=== PATIENT | male | born 1960 | race Caucasian/White ===

== ENCOUNTER 2017-08-25 08:48 | Day surgery (SDC) | payer BC ==
[2017-08-25] MEDS ORDERED: NS 1,000 ML IV ONE (08:50)
[2017-08-25] MEDS ORDERED: diphenhydrAMINE 25 MG CAP PO ONE ×2 (08:50→09:12)
[2017-08-25] MEDS ORDERED: FAMOTIDINE 20 MG TAB PO ONE (08:50)
[2017-08-25] MEDS ORDERED: ASPIRIN EC 325 MG TAB PO ONE ×2 (08:50→09:13)
[2017-08-25] MEDS ORDERED: DIAZEPAM 5 MG TAB PO ONE ×2 (08:50→10:15)
--- NOTE | 2017-08-25 09:06 | CPEKG ---
Heart Rate: 61 RR Interval: 984 P-R Interval: 180 QRSD Interval: 94 QT Interval: 412 QTC Interval: 415 P [place]: 7 QRS [place]: 42 T Wave [place]: -43 EKG Severity - ABNORMAL ECG - EKG Impression: SINUS RHYTHM EKG Impression: ABNORMAL T, CONSIDER ISCHEMIA, INFERIOR LEADS Electronically Signed By: Osmel Blue 26-Aug-2017 16:37:48
[2017-08-25] MEDS ORDERED: FAMOTIDINE 20 MG TAB ONE (09:12)
[2017-08-25] MEDS ORDERED: DIAZEPAM 5 MG TAB ONE (09:13)
[2017-08-25 09:20] LABS: PLATELET COUNT 235 10^3/uL (150-400)
[2017-08-25 09:30] LABS: INR 0.99 (0.83-1.16); PROTIME(PATIENT) 13.3 SEC (12.0-15.0)
[2017-08-25] MEDS ORDERED: MIDAZOLAM 2 MG/2 ML VIAL ONE (12:41)
[2017-08-25] MEDS ORDERED: VERAPAMIL 5 MG/2 ML VIAL ONE (12:41)
[2017-08-25] MEDS ORDERED: fentaNYL 100 MCG/2 ML INJ ONE (12:41)
[2017-08-25] MEDS ORDERED: HEPARIN 10,000 UNIT/10 ML MDV (1,000 UNIT/ML) ONE (12:41)
[2017-08-25] MEDS ORDERED: LIDOCAINE 1% 300 MG/30 ML SDV ONE (12:41)
[2017-08-25] MEDS ORDERED: IOPAMIDOL (ISOVUE-370) 150 ML BTL IV ONE (12:42)
--- NOTE | 2017-08-25 12:45 | PDHPUP ---
History & Physical Update H&P update statement: This history and physical update is based on an assessment of the patient which was completed after admission or registration (within 24 hours), but prior to the surgery/procedure. H&P update: H&P reviewed & patient examined, no change in patient's condition since H&P completed
--- NOTE | 2017-08-25 12:45 | PDPROPOC ---
Sedation Plan of Care Sedation Plan of Care: vital signs stable, mental status noted, patient educated of risks, benefits, alternatives, patient can tolerate sedation ASA Classification: ASA 3 Planned drugs: fentanyl, midazolam Mallampati Score: Class 3 Mallampati Reference Image: Patient passed 3-3-2 rule?: Yes
--- NOTE | 2017-08-25 13:28 | PDDXCAT ---
Diagnostic Cath Note - . Date: 08/25/17 [employer] Supervisor: Jesi Indication: CCC Class III and IV angina on medical treatment - Procedure Access: left wrist - Materials Left Heart Cath size: 5F Left Heart Cath materials: standard multipack (JL4, JR4, pigtail) - Findings-Left Heart Catheterization LM: The LM is 5 mm in size. It bifurcates into an LAD and circumflex system. There is a 10% eccentric ostial lesion at its takeoff from the left main coronary cusp. LAD: The LAD is 3.25mm in size. It has been previously stented. The stented segment is widely patent with 0% instent restenosis. The distal portion has LAYLA III flow to the level of the apex. No flow limiting obstruction is identified. LCX: The circumflex is 3.5mm in size with a 2mm high OM branch that serves as a functional ramus vessel. No flow limiting obstruction is identified. After the AV grove branch there is 10-20% stenosis of the circ OM. RCA: The RCA is 3mm in size. It is free of flow limiting disease. EDP: 20mmHg LVEF: The EF is normal at 65% Wall motion: On the LV gram there is normal LV systolic function. The EF is 65% . There are no resting segmental wall motion abnormalities. The visualized portion of the thoracic aortic valve reveals three sinuses of valsalva most consistent with a trileaflet valve. There is no gradient on pullback across the aortic valve. There is no evidence of eric dissection or aneurysm formation. Complications: NONE. Estimated blood loss: <50ml Closure method: TR Band Assessment: The patient has quechan vessel coronary disease with no evidence of flow limiting obstruction, dissection, or thrombus. A reason for the patient's chest pain and shortness of breath with exertion is not identified on the basis of this study. Plan: The patient has non-flow limiting coronary disease that should be treated medically to achieve a non-HDL cholesterol of less than 100 mg/dL. I would like him to continue with his current cholesterol lowering regimen of Atorvastatin 20mg daily. In addition he should take anti-platelet therapy with ASA is also recommended specifically a dose of 81mg per day. Intervention: NONE.
[2017-08-25] MEDS ORDERED: NITROGLYCERIN 0.4 MG BTL SL PRN (13:42)
[2017-08-25] MEDS ORDERED: HYDROCODONE/APAP 5/325 TAB PO PRN (13:42)
[2017-08-25] MEDS ORDERED: ATROPINE SULFATE 1 MG/10 ML SYR IVP PRN (13:42)
[2017-08-25] MEDS ORDERED: OXYCODONE/APAP 5/325 TAB PO PRN (13:42)
[2017-08-25] MEDS ORDERED: ONDANSETRON 4 MG/2 ML VIAL IVP PRN (13:42)
== END 2017-08-25 17:26 | disposition home or self-care (01) ==
LOC: FCATH 08:48
PROVIDERS: ATTEND Internal Medicine Cardiovascular Disease
PROC: B2111ZZ Fluoroscopy of Multiple Coronary Arteries using Low Osmolar Contrast (ICD-10-PCS; principal; 2017-08-25)
PROC: 4A023N7 Measurement of Cardiac Sampling and Pressure, Left Heart, Percutaneous Approach (ICD-10-PCS; principal; 2017-08-25)
PROC: B2151ZZ Fluoroscopy of Left Heart using Low Osmolar Contrast (ICD-10-PCS; principal; 2017-08-25)
DX: R07.9 Chest pain, unspecified (principal); R06.09 Other forms of dyspnea; R94.31 Abnormal electrocardiogram [ECG] [EKG]; T82.858A Stenosis of other vascular prosthetic devices, implants and grafts, initial encounter; I25.10 Atherosclerotic heart disease of native coronary artery without angina pectoris; I25.2 Old myocardial infarction; E78.5 Hyperlipidemia, unspecified; Z79.82 Long term (current) use of aspirin; Z95.5 Presence of coronary angioplasty implant and graft
CPT/HCPCS: J1644; J2250; J3010; Q9967